=== PATIENT | female | born 1985 | race Caucasian/White ===

== ENCOUNTER 2020-10-20 16:56 | Emergency (ER) | payer OTHER, SELFPAY ==
[2020-10-20 17:07] VITALS: BP 144/81; PULSE 84; RESP 20; TEMP 36.6; O2SAT 100
--- NOTE | 2020-10-20 17:12 | ED.DENTAL ---
HPI - Dental/Oral General Chief complaint: Dental/Oral Stated complaint: tooth pain Time Seen by Provider: 10/20/20 17:22 Source: patient History of Present Illness HPI Narrative: NO FEVER. NO JAW SWELLING. NO NECK SWELLING. NO LIMITATION WITH SPEAKING OR SWALLOWING. HAS A HISTORY OF DENTAL CARIES. HAS NOT SEEN A DENTIST RECENTLY. Patient has pain to the left upper back tooth. Patient states she has an appointment to see the dentist November 17. Patient states she is taken Tylenol and ibuprofen for the pain but is not controlling the pain. ? Related Data Allergies Allergy/AdvReac Type Severity Reaction Status Date / Time Penicillins Allergy Unknown Hives Verified 10/20/20 17:15 Review of Systems Review of Systems: Narrative: CONSTITUTIONAL: Denies fever, chills, or sweats. EYES: Denies visual changes, redness, or discharge. ENT: Denies rhinorrhea, congestion, sore throat, or otalgia. NO FEVER. NO JAW SWELLING. NO NECK SWELLING. NO LIMITATION WITH SPEAKING OR SWALLOWING. HAS A HISTORY OF DENTAL CARIES. HAS NOT SEEN A DENTIST RECENTLY. CARDIOVASCULAR: Denies chest pain, palpitations, or edema. RESPIRATORY: Denies cough or dyspnea. GASTROINTESTINAL: Denies abdominal pain, nausea, vomiting, or diarrhea. GENITOURINARY: Denies dysuria or hematuria. SKIN: Denies rash or itching. MUSCULOSKELETAL: Denies back pain, joint pain, or myalgia. NEUROLOGIC: Denies headache, numbness, or weakness. PSYCHIATRIC: Denies anxiety or depression. [facility] Family History Family History (Updated 09/01/19 @ 14:27 by DOCTOR UNKNOWN) Father Hypertension Mother Hypertension Sibling Hypertension Asthma Grandparent Carcinoma of colon Family history of lung cancer Other Family history of arthritis Family history of malignant neoplasm Social History Social History Smoking status: Former smoker Smoking end date: 12/02/13 Alcohol intake: never Comments At time of signature, agree with nursing past medical, surgical, social and family history. There is no relevant family history pertinent to the presenting complaint Exam Narrative: Exam Narrative: GENERAL: Well-appearing, well-nourished, and in no acute distress. HEAD: Normocephalic, atraumatic. EYES: PERRLA and EOMI. ENT: Nares clear, no rhinorrhea or epistaxis. Mucous membranes moist. NO FARZAD APICAL SWELLING, TOOTH TENDER TO PALPATION. NO FACIAL SWELLING. NO TRISMUS. ABLE TO OPEN MOUTH FULLY. NO NECK SWELLING OR CODEY'S ANGINA. NO ABSCESS TO BE DRAINED. no drooling, trismus, facial asymmetry or significant neck swelling NECK: Supple. CHEST: Clear to auscultation. No respiratory distress. HEART: Regular rate and rhythm. No murmur heard. Normal peripheral pulses. ABDOMEN: Soft, nontender, nondistended, normal active bowel sounds. EXTREMITIES: Normal range of motion. No edema. SKIN: Warm, dry, no rash. NEURO: No focal deficits. Alert and oriented x3. Obion Coma Scale Eye Opening: Spontaneous 4 Zeeshan Coma Scale Motor: Obeys Commands 6 Obion Coma Scale Verbal: Oriented 5 Zeeshan Coma Scale Total 15 HENMT: Teeth image: 1. pain some swelling no drainable abscess Course Vital Signs Vital signs: Vital Signs Temperature 36.6 C 10/20/20 17:07 Pulse Rate 84 10/20/20 17:07 Respiratory Rate 20 10/20/20 17:07 Blood Pressure 144/81 H 10/20/20 17:07 Pulse Oximetry 100 10/20/20 17:07 Temperature 36.6 C 10/20/20 17:07 Pulse Rate 84 10/20/20 17:07 Respiratory Rate 20 10/20/20 17:07 Blood Pressure 144/81 H 10/20/20 17:07 Pulse Oximetry 100 10/20/20 17:07 Please EDER schedule a followup visit with your personal physician for further evaluation and treatment. Including recheck and discussion of your blood pressure. If your symptoms persist, change or worsen significantly before you can contact your personal physician then please, without delay, go to the emergency department for further evaluation MDM - Dental/Oral Differential Di
== END 2020-10-20 17:25 | disposition home or self-care (01) ==
PROVIDERS: Emergency Provider Nurse Practitioner Family; PCP Internal Medicine
DX: K08.89 Other specified disorders of teeth and supporting structures (principal); K04.7 Periapical abscess without sinus; K02.9 Dental caries, unspecified; Z87.891 Personal history of nicotine dependence
CPT/HCPCS: 99213; G0463

== ENCOUNTER 2021-05-01 15:58 | Emergency (ER) | payer OTHER, SELFPAY ==
[2021-05-01 16:05] VITALS: BP 145/93; PULSE 112; RESP 20; TEMP 36.4; O2SAT 93
[2021-05-01] MEDS: diphenhydrAMINE HCl CAP 25 MG CAPSULE 50 MG PO (16:12)
[2021-05-01] MEDS: methylPREDNISolone SOD SUCC 125 MG VIAL IM (16:12)
--- NOTE | 2021-05-01 16:14 | ED.ALLEREA ---
HPI - Allergic Reaction General Chief complaint: Allergic Reaction Stated complaint: hives all over and throat tight Time Seen by Provider: 05/01/21 16:14 Source: patient Mode of arrival: ambulatory Limitations: no limitations History of Present Illness HPI narrative: Danuta Fowler is a 35 yo female with a known nut allergy who comes to express care with an allergic reaction to unknown trigger. states she started to break out and had tightening in throat prior to eating bread and honey but this is only new thing she can identify. She has small hives on her torso and all extremities Related Data Home Medications Medication Instructions Recorded Confirmed lisinopril 10 mg PO DAILY 05/01/21 05/01/21 Allergies Allergy/AdvReac Type Severity Reaction Status Date / Time Penicillins Allergy Unknown Hives Verified 05/01/21 16:06 Review of Systems Review of Systems: Narrative: CONSTITUTIONAL: Denies fever, chills, sweats. EYES: Denies visual changes, redness, discharge. ENT: Denies rhinorrhea, congestion, sore throat, otalgia. CARDIOVASCULAR: Denies chest pain, palpitations, edema. RESPIRATORY: Denies dyspnea, wheezing, cough GASTROINTESTINAL: Denies abdominal pain, nausea, vomiting, diarrhea. GENITOURINARY: Denies dysuria, hematuria, abnormal discharge SKIN: Hives Legs and Torso, complaining of tightening of the throat NEUROLOGIC: Denies numbness, or focal weakness. PSYCHIATRIC: Denies anxiety or depression. PMFSH Past Medical History Medical History Nut allergy Family History Family History Father Hypertension Mother Hypertension Sibling Hypertension Asthma Grandparent Carcinoma of colon Family history of lung cancer Other Family history of arthritis Family history of malignant neoplasm Social History Social History Smoking status: Former smoker Smoking end date: 12/02/13 Alcohol intake: never Comments At time of signature, I agree with nursing past medical, surgical, social and family history. There is no relevant family history pertinent to the presenting complaint. Exam Narrative: Exam Narrative: GENERAL: This is a well-nourished, well-developed patient, in moderate distress. HEAD: normocephalic, atraumatic. EYES: Sclera clear/white. Vision is grossly intact. EARS: External ears normal, . Hearing grossly intact. NOSE: External nose normal without nasal discharge, nares without redness, no rhinorrhea. THROAT: Mucous membranes moist, posterior pharynx mild erythema but patent NECK: Neck supple, non-tender CARDIOVASCULAR: Tachycardic rate and rhythm without murmurs, gallops, or rubs. RESPIRATORY: Clear to auscultation. Breath sounds equal bilaterally. No wheezes, rales, or rhonchi. GASTROINTESTINAL: Abdomen soft, non-tender, SKIN: warm, intact with bailee hives on extremities and torso NEURO: awake, alert, and oriented to person, place and time. There were no obvious focal neurologic abnormalities. Steady gait EXTREMITIES: Normal range of motion. BACK: Nontender without deformity Course Course Emergency Course: Initial assessment: Airway patent, heart rate tachycardic blood pressure elevated, hives on extremities and torso, Given Solu-Medrol, 50 mg of Benadryl, Pepcid 40 mg Reassessment: Clear posterior pharynx, heart rate blood pressure, rash has not increased Reassessment 3 Clear posterior pharynx, heart rate improved (90), even breathing no wheezing rash is improved substantially Directions to follow-up with primary care physician, prednisone Pepcid, Benadryl given for the next few days along with a prescription for an EpiPen Vital Signs Vital signs: Vital Signs Temperature 97.6 F 05/01/21 16:05 Pulse Rate 112 H 05/01/21 16:05 Respiratory Rate 20 05/01/21 16:05 Blood Pressure 145/93 H 05/01/21 16:
[2021-05-01] MEDS: FAMOTIDINE 20 MG TABLET 40 MG PO (16:23)
[2021-05-01 16:50] VITALS: BP 136/102; PULSE 119; O2SAT 98
== END 2021-05-01 17:40 | disposition home or self-care (01) ==
PROVIDERS: Emergency Provider Nurse Practitioner
DX: L50.9 Urticaria, unspecified (principal); R09.89 Other specified symptoms and signs involving the circulatory and respiratory systems; T78.40XA Allergy, unspecified, initial encounter; Z87.891 Personal history of nicotine dependence; I10 Essential (primary) hypertension
CPT/HCPCS: 96372; 99213; A9270; G0463; J2930

== ENCOUNTER 2021-11-14 15:22 | Emergency (ER) | payer OTHER, SELFPAY ==
[2021-11-14 15:30] VITALS: BP 133/75; PULSE 97; RESP 14; TEMP 36.8; O2SAT 100
--- NOTE | 2021-11-14 15:51 | ED.DENTAL ---
HPI - Dental/Oral General Chief complaint: Dental/Oral Stated complaint: Toothach Time Seen by Provider: 11/14/21 15:26 Source: patient Mode of arrival: ambulatory Limitations: no limitations History of Present Illness HPI Narrative: 36-year-old female presents to [facility] for complaints of left upper tooth pain for the past week. Patient reports that she does have a history of dental issues. Patient reports that she had a left upper tooth break off 1 week ago. Patient states that she is scheduled to see her dentist in December. Patient denies fever, bodies, chills, nausea, vomiting or diarrhea. MD Complaint: tooth pain Location: Tooth # (14,15) Onset (ago): week(s) (1) Relieving factors: NSAIDs Treatment prior to arrival: oral analgesic Related Data Home Medications Medication Instructions Recorded Confirmed lisinopril 5 mg PO DAILY 05/01/21 11/14/21 Allergies Allergy/AdvReac Type Severity Reaction Status Date / Time Penicillins Allergy Unknown Hives Verified 11/14/21 15:36 Review of Systems Constitutional: Constitutional: Denies chills, Denies fatigue, Denies fever(s) and Denies weakness ENT: Comments: dental pain Cardiovascular: Cardiovascular: Denies chest pain, Denies rapid heart rate and Denies radiating jaw, neck or arm pain Respiratory: Respiratory: Denies cough Integumentary/Breasts: Skin/Breast: Denies rash PMFSH Past Medical History Medical History Nut allergy Family History Family History Father Hypertension Mother Hypertension Sibling Hypertension Asthma Grandparent Carcinoma of colon Family history of lung cancer Other Family history of arthritis Family history of malignant neoplasm Social History Social History (Updated 11/14/21 @ 15:53 by Isabelle Monson APRN) Smoking status: Former smoker Tobacco type: e-cigarettes/vaping Smoking end date: 12/02/13 Alcohol intake: never Comments At time of signature, I agree with nursing past medical, surgical, social and family history. There is no relevant family history pertinent to the presenting complaint. Exam Const: General: healthy appearing and no acute distress Orientation/consciousness: patient oriented x3 HENMT: Other: Broken tooth noted to tooth 14 and 15. There is mild surrounding erythema and swelling noted. There is no dental abscess noted. No jaw swelling, bruising today*open wound noted Eyes: Pupils: Equal, round and reactive pupils present Resp: Effort & Inspection: normal respiratory effort, not labored and not tachypneic Auscultation: clear to auscultation bilaterally Cardio: Rate: regular rate Rhythm: regular rhythm Skin: General skin exam: normal color Rashes: no rashes Neuro: General: patient oriented x3, moves all extremities and no meningeal signs Psych: Appearance: grossly normal Affect: normal affect Attitude: cooperative Thought content: Yes Normal thought content present Course Vital Signs Vital signs: Vital Signs Temperature 36.8 C 11/14/21 15:30 Pulse Rate 97 11/14/21 15:30 Respiratory Rate 14 11/14/21 15:30 Blood Pressure 133/75 11/14/21 15:30 Pulse Oximetry 100 11/14/21 15:30 Temperature 36.8 C 11/14/21 15:30 Pulse Rate 97 11/14/21 15:30 Respiratory Rate 14 11/14/21 15:30 Blood Pressure 133/75 11/14/21 15:30 Pulse Oximetry 100 11/14/21 15:30 MDM - Dental/Oral MDM Narrative Medical decision making narrative: Patient agrees to keep scheduled dentist appointment. Patient agrees to continue to alternate Motrin Tylenol as needed. Patient agrees to take antibiotic as prescribed. Patient agrees to proceed to emergency room if symptoms worsen Differential Diagnosis Differential diagnosis: Likely dental abscess, fracture of tooth and aphthous ulcer Critical Care Time Critical Care Time Critical Care Time: No Dis
== END 2021-11-14 15:59 | disposition home or self-care (01) ==
PROVIDERS: Emergency Provider Nurse Practitioner Family
DX: K08.89 Other specified disorders of teeth and supporting structures (principal)
CPT/HCPCS: 99213; G0463

== ENCOUNTER 2022-11-08 13:32 | Emergency (ER) | payer OTHER, SELFPAY ==
[2022-11-08 13:38] VITALS: BP 151/82; PULSE 84; RESP 20; TEMP 36.5; O2SAT 100
--- NOTE | 2022-11-08 13:39 | ED.DENTAL ---
HPI - Dental/Oral General Chief complaint: Dental/Oral Stated complaint: Toothache Time Seen by Provider: 11/08/22 13:40 Source: patient and RN notes reviewed History of Present Illness HPI Narrative: patient is a 37-year-old female who presents to the Urgent Care with complaints of right upper dental pain after cracking and 2 2 days ago. Patient states she called her dentist and they are unable to see her until December. Patient states that she had some mild facial swelling last night. Patient has been doing salt water gargles and using peroxide. Denies any fevers, nausea or vomiting. No other acute complaints. No acute distress noted. Patient aware of the plan of care. Some parts of this dictation were generated by voice recognition software and may contain typographical and/or grammatical inaccuracies. Related Data Allergies Allergy/AdvReac Type Severity Reaction Status Date / Time Penicillins Allergy Unknown Hives Verified 11/08/22 13:41 Review of Systems Review of Systems: CONSTITUTIONAL: Denies fever, chills, or sweats. EYES: Denies visual changes, redness, or discharge. ENT: Denies rhinorrhea, congestion, sore throat, or otalgia. Reports of right upper dental pain CARDIOVASCULAR: Denies chest pain, palpitations, or edema. RESPIRATORY: Denies cough or dyspnea. GASTROINTESTINAL: Denies abdominal pain, nausea, vomiting, or diarrhea. GENITOURINARY: Denies dysuria or hematuria. SKIN: Denies rash or itching. MUSCULOSKELETAL: Denies back pain, joint pain, or myalgia. NEUROLOGIC: Denies headache, numbness, or weakness. All other systems reviewed are negative, except as documented in HPI. [facility] Past Medical History Medical History Nut allergy Family History Family History Father Hypertension Mother Hypertension Sibling Hypertension Asthma Grandparent Carcinoma of colon Family history of lung cancer Other Family history of arthritis Family history of malignant neoplasm Social History Social History (Updated 11/14/21 @ 15:53 by Isabelle Monson APRN) Smoking status: Former smoker Tobacco type: e-cigarettes/vaping Smoking end date: 12/02/13 Alcohol intake: never Comments At the time of my signature, I reviewed and agree with the nursing past medical, surgical, social, and family history. There is no relevant family history pertinent to the patient complaint. Exam Narrative: GENERAL: This is a well-nourished, well-developed patient, in no apparent distress. HEAD: normocephalic, atraumatic. EYES: PERRL. Sclera clear/white. Vision is grossly intact. EARS: External ears normal NOSE: External nose normal with no obvious nasal discharge, nares without redness, no rhinorrhea. THROAT: Mucous membranes moist, posterior pharynx clear. NECK: Neck supple, non-tender without lymphadenopathy DENTAL: large carious lesion to avulsed 1st right upper molar with mild surrounding erythema. CARDIOVASCULAR: Regular rate and rhythm without murmurs, gallops, or rubs. RESPIRATORY: Clear to auscultation. Breath sounds equal bilaterally. No wheezes, rales, or rhonchi. SKIN: warm, intact with no suspicious lesions or rash, good texture and turgor. NEURO: awake, alert, and oriented to person, place and time. There were no obvious focal neurologic abnormalities. EXTREMITIES: No clubbing, cyanosis, or edema Course Course Level of Care: Express Care Visit Vital Signs Vital signs: Vital Signs Temperature 97.7 F 11/08/22 13:38 Pulse Rate 84 11/08/22 13:38 Respiratory Rate 20 11/08/22 13:38 Blood Pressure 151/82 H 11/08/22 13:38 Pulse Oximetry 100 11/08/22 13:38 Oxygen Delivery Room Air 11/08/22 13:38 Temperature 97.7 F 11/08/22 13:38 Pulse Rate 84 11/08/22 13:38 Respiratory Rate 20 11/08/22 13:38 Blood Pressure 151/82 H 11/08/22 13:38 Pulse Oximetry 100 11/08/22 13:3
== END 2022-11-08 14:16 | disposition home or self-care (01) ==
PROVIDERS: Emergency Provider Nurse Practitioner Family
DX: K02.9 Dental caries, unspecified (principal); S02.5XXA Fracture of tooth (traumatic), initial encounter for closed fracture; X58.XXXA Exposure to other specified factors, initial encounter
CPT/HCPCS: 99213; G0463

== ENCOUNTER 2024-02-05 11:41 | Emergency (ER) | payer OTHER, SELFPAY ==
[2024-02-05 11:47] VITALS: BP 144/100; PULSE 94; RESP 16; TEMP 36.9; O2SAT 100
[2024-02-05 11:52] VITALS: BP 153/97
[2024-02-05 11:55] VITALS: BP 153/97; PULSE 94; RESP 16; TEMP 36.9; O2SAT 100
--- NOTE | 2024-02-05 12:06 | ED.HA ---
HPI - Headache General Chief Complaint: Headache Stated Complaint: migraine Time Seen by Provider: 02/05/24 12:06 Source: patient, RN notes reviewed and old records reviewed Mode of arrival: ambulatory Limitations: no limitations History of Present Illness HPI Narrative: 38 year old female who presents to [facility] care accompanied by family member and son with complaints of migriane headache noted to the back of her head which started around 0600 today. Patient reports that she has taken Tylenol and Ibuprofen and also her Imetrex without improvement to her head pain. Patient reports that she has nausea with no emesis, has associated photophobia and sound sensitivity. Patient reports history of Migraines and are worse just before her menses.Patient reports 15 year history of migraines. MD elicited complaint: migraine Pertinent past history: migraines and hypertension Onset (ago): hour(s) (today at 0600) Location: occipital Pain scale (0-10): 10 Treatments prior to arrival: acetaminophen, ibuprofen and other (Imitrex) Related Data Home Medications Medication Instructions Recorded Confirmed fluticasone propionate 50 intranasal 02/05/24 mcg/actuation nasal spray,suspension omeprazole 40 mg capsule,delayed mg 02/05/24 release sumatriptan succinate 50 mg tablet mg PO 02/05/24 Allergies Allergy/AdvReac Type Severity Reaction Status Date / Time Penicillins Allergy Unknown Hives Verified 02/05/24 11:48 tramadol Allergy Hives Verified 02/05/24 12:15 Review of Systems Review of Systems: CONSTITUTIONAL: Denies fever, chills, or sweats. EYES: Denies visual changes, redness, or discharge.is photophobic and has sound sensitivity ENT: Denies rhinorrhea, congestion, sore throat, or otalgia. CARDIOVASCULAR: Denies chest pain, palpitations, or edema. RESPIRATORY: Denies cough or dyspnea. GASTROINTESTINAL: Denies abdominal pain positive for nausea, no vomiting, or diarrhea. GENITOURINARY: Denies dysuria or hematuria. SKIN: Denies rash or itching. MUSCULOSKELETAL: Denies back pain, joint pain, or myalgia. NEUROLOGIC: Reports posterior headache,no numbness, or weakness. PSYCHIATRIC: Reports history of anxiety or depression. All systems reviewed & are unremarkable except as noted in HPI and below PMFSH Past Medical History Medical History (Updated 02/06/24 @ 10:41 by Mounika Snyder NP) Ankle fracture, right Anxiety Hx of migraines Hypertension Nut allergy Surgical History Surgical History (Updated 02/06/24 @ 10:36 by Mounika Snyder NP) H/O arthroscopic knee surgery Family History Family History Father Hypertension Mother Hypertension Sibling Hypertension Asthma Grandparent Carcinoma of colon Family history of lung cancer Other Family history of arthritis Family history of malignant neoplasm Social History Social History (Updated 11/14/21 @ 15:53 by Isabelle Monson APRN) Smoking status: Former smoker Tobacco type: e-cigarettes/vaping Smoking end date: 12/02/13 Alcohol intake: never Comments At time of signature, agree with nursing past medical, surgical, social and family history. There is no relevant family history pertinent to the presenting complaint Exam Narrative: GENERAL: Well-appearing, well-nourished, and in some acute distress. HEAD: Normocephalic, atraumatic. EYES: PERRLA and EOMI.sensitivity to light and sound ENT: Nares clear, no rhinorrhea or epistaxis. Mucous membranes moist.TM's normal throat pink with no swelling NECK: Supple. no lymphadenopathy CHEST: Clear to auscultation. No respiratory distress. SAO2 100% on room air HEART: Regular rate and rhythm. No murmur heard. Normal peripheral pulses. ABDOMEN: Soft, nontender, nondistended, normal active bowel sounds. stated nausea EXTREMITIES: Normal range of motion. No edema. SKIN: Warm, dry, no rash. NEURO: No focal deficits. Alert and oriented x3. o
[2024-02-05] MEDS: ONDANSETRON HCL ODT 4 MG TABLET SUBLINGUAL (12:20)
[2024-02-05] MEDS: KETOROLAC (*BKC) 60 MG/2 ML VIAL IM (12:20)
== END 2024-02-05 12:46 | disposition home or self-care (01) ==
PROVIDERS: Emergency Provider Registered Nurse
DX: G43.909 Migraine, unspecified, not intractable, without status migrainosus (principal); I10 Essential (primary) hypertension
CPT/HCPCS: 96372; 99213; A9270; G0463; J1885

== ENCOUNTER 2024-05-14 11:44 | Emergency (ER) | payer OTHER, SELFPAY ==
[2024-05-14 11:51] VITALS: BP 129/74; PULSE 82; RESP 18; TEMP 37.2; O2SAT 100
--- NOTE | 2024-05-14 13:06 | ED.NAVMDI ---
HPI - Nausea/Vomiting/Diarrhea General Chief complaint: Nausea/Vomiting/Diarrhea Stated complaint: Vomiting/Diarrhea/Fatigue Time Seen by Provider: 05/14/24 12:30 Source: patient, RN notes reviewed and old records reviewed Mode of arrival: ambulatory Limitations: no limitations History of Present Illness HPI Narrative: 38 year old female who presents to [facility] care with complaints of nausea,vomiting and diarrhea and headache with feelings of exhaustion for the past 4 days. Patient reports that she had one diarrhea stool this morning no vomiting today. Patient reports that she has not eaten today did eat yesterday, has been taking in fluids and voiding without difficulty. Patient reports no ill contacts or any fevers, chills or body aches. MD elicited complaint: nausea, vomiting, diarrhea and other (headache and exhaustion) Onset (ago): day(s) (4) Description of diarrhea: watery Associated nausea: Yes Associated abdominal pain: No Treatment prior to arrival: NSAIDs and other (Tylenol) Related Data Home Medications Medication Instructions Recorded Confirmed omeprazole 40 mg capsule,delayed 40 mg PO DAILY 02/05/24 05/14/24 release amitriptyline 50 mg tablet 50 mg PO DAILY PRN Migraine 05/14/24 05/14/24 Headache ketoconazole 2 % shampoo 1 applic topical DAILY 05/14/24 05/14/24 lisinopril 10 mg tablet 10 mg PO DAILY 05/14/24 05/14/24 loratadine 10 mg tablet 10 mg PO DAILY 05/14/24 05/14/24 Allergies Allergy/AdvReac Type Severity Reaction Status Date / Time Penicillins Allergy Unknown Hives Verified 05/14/24 12:39 tramadol Allergy Hives Verified 05/14/24 12:39 Review of Systems Review of Systems: CONSTITUTIONAL: Denies fever, chills, or sweats.low energy ENT: Denies rhinorrhea, congestion, sore throat, or otalgia. CARDIOVASCULAR: Denies chest pain, palpitations, or edema. RESPIRATORY: Denies cough or dyspnea. GASTROINTESTINAL: Reports no abdominal pain,positive for nausea, no vomiting today, positive for diarrhea. GENITOURINARY: Denies dysuria or hematuria. SKIN: Denies rash or itching. MUSCULOSKELETAL: Denies back pain, joint pain, or myalgia. NEUROLOGIC: Reports headache, no numbness, or weakness. All systems reviewed & are unremarkable except as noted in HPI and below PMFSH Past Medical History Medical History Ankle fracture, right Anxiety Hx of migraines Hypertension Nut allergy Surgical History Surgical History H/O arthroscopic knee surgery Family History Family History Father Hypertension Mother Hypertension Sibling Hypertension Asthma Grandparent Carcinoma of colon Family history of lung cancer Other Family history of arthritis Family history of malignant neoplasm Social History Social History (Updated 05/16/24 @ 08:04 by Mounika Snyder NP) Smoking status: Current every day smoker Tobacco type: e-cigarettes/vaping Smoking end date: 12/02/13 Additional smoking assessment comments: now vapes Alcohol intake: never Substance use type: does not use Living arrangements: with family Gender identity (if verbalized by the patient): Female Comments At time of signature, agree with nursing past medical, surgical, social and family history. There is no relevant family history pertinent to the presenting complaint Exam Narrative: GENERAL: Well-appearing, well-nourished, and in no acute distress. HEAD: Normocephalic, atraumatic. EYES: PERRLA, conjunctivae clear, and EOMI. ENT: Nares clear. Mucous membranes moist. Oropharynx without edema, erythema, or lesions. Tonsils not enlarged and without exudate. NECK: Supple. No lymphadenopathy CHEST: Speaks in full sentences. No respiratory distress.SAO2 100% on room air HEART: Regular rate and rhythm. ABDOMEN: Soft, flat, nondistended. No guard
== END 2024-05-14 13:16 | disposition home or self-care (01) ==
PROVIDERS: Emergency Provider Registered Nurse
DX: K52.9 Noninfective gastroenteritis and colitis, unspecified (principal); F17.290 Nicotine dependence, other tobacco product, uncomplicated; I10 Essential (primary) hypertension
CPT/HCPCS: 99213; G0463

== ENCOUNTER 2025-08-31 12:20 | Emergency (ER) | payer SELFPAY ==
--- NOTE | ~2025-08-31 | XR_ITS ---
Examination: XR knee RT 3V Clinical History: pain twisting injury. Comparison: None Technique: 3 views right knee Findings/impression: 1. No fracture, dislocation, or effusion. 2. Moderate patellofemoral compartment joint space narrowing with mild marginal osteophytes. 3. Mild lateral compartment marginal osteophytes. Reviewed, dictated and finalized at location R.
--- OUTSIDE RECORDS SUMMARY | 2025-08-31 12:22 | XMS_ITS | Clinical Summary ---
Author Organization [facility] Address [address] [facility] [address] [place] [address] Phone Care Team Providers Care Lettuce Trimmer Name Role Phone Provider, None Primary Care Provider Unavailabl e Allergies Active Allergy Reactions Criticality Noted Date Comments Ketorolac Other (see Comments) 02/20/2025 uncontrollable shaking Penicillins Hives 01/17/2017 Tramadol Hives 02/07/2018 Medications albuterol (PROVENTIL HFA, VENTOLIN HFA) 108 (90 Base) MCG/ACT Aerosol SolutionIndicat ions:Bronchitis take 2 Puffs by inhalation every 4 hours as needed for Wheezing. 8.5 g 8 Active SUMAtriptan (IMITREX) 50 MG Tablet Take 1 Tab by mouth once as needed for Migraine for up to 1 dose. Use as directed. May repeat dose in 2 hours if headache recurs. 9 Tab 3 8 Active Active Problems Problem Noted Date Diagnosed Date Chondromalacia of knee, left 05/21/2018 Chronic pain of left knee 05/21/2018 Fatigue 11/20/2017 Migraine without aura and wi thout status migrainosus, not intractable 04/12/2017 Immunizations Immunization Administration Dates Next Due PUR TDAP 7+ YRS IM 01/17/2017 Family History Medical History Relation Name Comments Hypertension Father Cancer Maternal Grandfather Hypertension Mother Cancer Paternal Grandfather Cancer Paternal Grandmother Relation Name Status Comments Father Alive Maternal Grandfather Mother Alive Paternal Grandfather Paternal Grandmother Social History Tobacco Use Types Packs/Day Years Used Date Smoking Tobacco: Former E-Vapor with Nicotine Quit: 01/17/2014 Smokeless Tobacco: Current Tobacco Cessation:Ready to Q uit: No; Counseling Given: Yes Comments:4mg Alcohol Use Standard Drinks/Week Comments No 0 (1 standard drink = 0.6 oz pur e alcohol) Sexually Active Control Partners Comments Yes I.U.D. Comments No Sex and Gender Information Value Date Recorded Sex Assigned at Not on file Legal Sex Female 9:17 PM CDT Gender Identity Not on file Sexual Orientation Not on file Last Filed Vital Signs Vital Sign Reading Time Taken Comments Blood Pressure 143/89 02/20/2025 10:30 PM CDT Pulse 115 02/20/2025 10:30 PM CDT Temperature 36.8 C (98.2 F) 02/20/2025 7:53 PM CDT Respiratory Rate 20 02/20/2025 7:53 PM CDT Oxygen Saturation 97% 02/20/2025 10:30 PM CDT Inhaled Oxygen Concentration - - Weight 78.5 kg (173 lb) 02/20/2025 7:53 PM CDT Height 160 cm (5' 3) 02/20/2025 7:53 PM CDT Body Mass Index 30.65 02/20/2025 7:53 PM CDT Plan of Treatment Health Maintenance Due Date Last Done Comments Hepatitis C Virus (HCV) Screening 1985 Hepatitis B Immunization (1 of 3 - 19+ 3-dose series) 2004 Human Papillomavirus (HPV) Immunization (1 - 3-dose SCDM series) 2012 HPV/Cotest 2015 Cervical Cancer Screening (CCS) 01/13/2019 Pap Smear 01/13/2019 01/13/2016 Influenza Immunization (#1) 2025 SARS-COV-2 Immunization ( season) 2025 Td Immunization Every 10 Yea rs (Adults With 1 Tdap) 01/17/2027 01/17/2017 Respiratory Syncytial Virus (RSV) Immunization (Adult) (1 - 1-dose 75+ series) 2060 Meningococcal Immunization (ACWY) Aged Out No longer eligible based on patient's age to complete this topic Pneumococcal Immunization Combined Aged Out No longer eligible based on patient's age to complete this topic Rotavirus Immunization Aged Out No lo nger eligible based on patient's age to complete this topic Procedures Procedure Name Priority Date/Time Associated Diagnosis Comments PATHOLOGY CYTOLOGY FRUIT WASHER Routine 01/13/2016 from Last 3 Months or Most Recently Relevant to Health Maintenance Results * PATHOLOGY CYTOLOGY FRUIT WASHER (01/13/2016) Specimen of unknown material (specimen) Latesha Concepcion MD PATHOLOGY/CYTOLOGY ORDERABLES Final Result from Last 3 Months or Most Recently Relevant to Health Maintenance Insurance [employer] Care Teams Lettuce Trimmer Relationship Specialty Start Date End Date Provider, Marsha GARDINER PCP - General 02/20/25
--- OUTSIDE RECORDS SUMMARY | 2025-08-31 12:22 | XMS_ITS | Clinical Summary ---
Author Organization [facility] Address [address] [place] [address] Care Team Providers Care Microbiological Analyst Name Role Phone Andry Waters MD Primary Care Provider [phone] Allergies Active Allergy Reactions Criticality Noted Date Comments Nuts Anaphylaxis,Chest tightness,Shortness of breath,Swollen tongue High 10/10/2021 Penicillins Hives Medium 01/17/2017 Reaction: hives, Tramadol Itching,Hives Medium 01/02/2018 Medications fluticasone propionate (FLONASE) 50 mcg/actuation nasal sprayIndications :Eustachian tube dysfunction, bilateral Administer 2 sprays into each nostril daily 16 mL 5 3 Active triamcinolone (KENALOG) 0.1 % cream Apply topically 2 (two) times a day as needed for rash for up to 14 days AVOID FACE AND GROIN 28 g 3 Active SUMAtriptan (IMITREX) 50 mg tabletIndication s:Menstrual migraine without status migrainosus, not intractable TAKE 1 TABLET BY MOUTH ONCE NEEDED FOR MIGRAINE, MAY REPEAT IN 2 HOURS IF NO RELIEF, DO NOT EXCEED 2 DOSES IN 24 HOURS 9 tablet 1 3 Active ketoconazole (NIZORAL) 2 % shampoo Apply topically 2 (two) times a week Apply to damp skin, lather, leave on 5 minutes, and rinse 120 mL 1 3 Active clobetasoL (TEMOVATE) 0.05 % cream Apply topically 2 (two) times a day 60 g 2 3 Active lisinopriL (PRINIVIL,ZESTRI L) 10 mg tabletIndication s:Hypertension, essential Take 1 tablet (10 mg total) by mouth daily 90 tablet 4 Active loratadine (CLARITIN) 10 mg tablet Take 1 tablet (10 mg total) by mouth daily as needed for allergies 90 tablet 4 Active EPINEPHrine 0.3 mg/0.3 mL auto-injection syringeIndicatio ns:Anaphylaxis Inject 0.3 mL (0.3 mg total) into the muscle as instructed as needed for anaphylaxis 2 each 4 Active omeprazole (PriLOSEC) 40 mg capsule Take 1 capsule (40 mg total) by mouth daily 90 capsule 4 Active amitriptyline (ELAVIL) 50 mg tabletIndication s:Menstrual migraine without status migrainosus, not intractable TAKE 1 TABLET(50 MG) BY MOUTH EVERY NIGHT 90 tablet 1 4 Active Active Problems Problem Noted Date Diagnosed Date Annual physical exam 10/30/2023 Class 1 obesity due to exces s calories without serious comorbidity with body mass index (BMI) of 33.0 to 33.9 in adult 12/19/2022 Assessment & Plan (02/26/2024 2:51 PM CDT): Wt Readings from Last 3 Encounters: 02/26/24 79 kg (174 lb 1.6 oz) 10/30/23 79.5 kg (175 lb 4.8 oz) 05/28/23 82.1 kg (181 lb) BMI Readings from Last 3 Encounters: 02/26/24 31.84 kg/m 10/30/23 32.05 kg/m 05/28/23 33.11 kg/m Not at goal of bmi <30 Continue diet and exercise BMI Follow-up includes: nutrition counseling and exercise counseling. Assessment & Plan (10/30/2023 3:48 PM MUSHROOM GROWER): Wt Readings from Last 3 Encounters: 10/30/23 79.5 kg (175 lb 4.8 oz) 05/28/23 82.1 kg (181 lb) 02/27/23 83.3 kg (183 lb 11.2 oz) BMI Readings from Last 3 Encounters: 10/30/23 32.05 kg/m 05/28/23 33.11 kg/m 02/27/23 33.60 kg/m Not at goal of bmi <30 Continue diet and exercise BMI Follow-up includes: nutrition counseling and exercise counseling. Assessment & Plan (05/28/2023 11:56 AM CDT): Wt Readings from Last 3 Encounters: 05/28/23 82.1 kg (181 lb) 02/27/23 83.3 kg (183 lb 11.2 oz) 12/19/22 83 kg (183 lb) BMI Readings from Last 3 Encounters: 05/28/23 33.11 kg/m 02/27/23 33.60 kg/m 12/19/22 33.46 kg/m Not at goal of bmi <30 Continue diet and exercise BMI Follow-up includes: nutrition counseling and exercise counseling. Assessment & Plan (02/27/2023 9:59 AM CDT): Wt Readings from Last 3 Encounters: 02/27/23 83.3 kg (183 lb 11.2 oz) 12/19/22 83 kg (183 lb) 10/11/21 68 kg (150 lb) BMI Readings from Last 3 Encounters: 02/27/23 33.60 kg/m 12/19/22 33.46 kg/m 10/11/21 27.44 kg/m Not at goal of bmi <30 Continue diet and exercise BMI Follow-up includes: nutrition counseling and exercise counseling. Assessment & Plan (12/19/2022 11:46 AM MUSHROOM GROWER): Wt Readings from Last 3 Encounters: 12/19/22 83 kg (183 lb) 10/11/21 68 kg (150 lb) 10/10/21 72.8 kg (160 lb 9.6 oz) BMI Readings from Last 3 Encounters: 12/19/22 33.46 kg/m 10/11/21 27.44 kg/m 10/10/21 27.57 kg/m Not at goal of bmi <30 Continue diet and exercise BMI Follow-up includes: nutrition counseling and exercise counseling. Primary insomnia 10/10/2021 Assessment & Plan (02/27/2023 9:59 AM CDT): - at goal - difficulty with sleep initiation and maintenance - c/w Amitriptyline 25 mg nightly for migraine prevention but may also help with sleep Assessment & Plan (12/19/2022 11:44 AM MUSHROOM GROWER): - at goal - difficulty with sleep initiation and maintenance - c/w Amitriptyline 25 mg nightly for migraine prevention but may also help with sleep Assessment & Plan (10/10/2021 12:56 PM MUSHROOM GROWER): - chronic, not at goal - difficulty with sleep initiation and maintenance - start Amitriptyline 25 mg nightly for migraine prevention but may also help with sleep - follow up in 2 months Allergic reaction 05/08/2021 Assessment & Plan (05/08/2021 8:16 AM CDT): - recent episode of allergic reaction for which she went to urgent care - she was administered Epinephrine and had felt diffuse hives, hands swelling and finger numbness and also felt her throat was closing - does nto appear she had a true anaphalaxis - she would like to be tested for allergic causes as there was no specific known cause for it - referral placed to Allergy/Immunology Hypertension, essential 03/28/2021 Assessment & Plan (02/26/2024 2:55 PM CDT): BP Readings from Last 3 Encounters: 02/26/24 90/60 10/30/23 122/84 05/28/23 118/82 Vitals BP 90/60 (BP Location: Left arm, Patient Position: Sitting) Pulse 69 Resp 16 Ht 157.5 cm (5' 2.01) Wt 79 kg (174 lb 1.6 oz) SpO2 98% BMI 31.84 kg/m Lab Results Component Value Date POTASSIUM 4.7 12/27/2022 At goal at this time Continue lisionpril 10 mg every day Assessment & Plan (10/30/2023 3:48 PM MUSHROOM GROWER): BP Readings from Last 3 Encounters: 10/30/23 122/84 05/28/23 118/82 02/27/23 116/60 Vitals BP 122/84 (BP Location: Right arm, Patient Position: Sitting) Pulse 71 Resp 16 Ht 157.5 cm (5' 2.01) Wt 79.5 kg (175 lb 4.8 oz) SpO2 97% BMI 32.05 kg/m Lab Results Component Value Date POTASSIUM 4.7 12/27/2022 At goal at this time Continue lisionpril 10 mg every day Assessment & Plan (05/28/2023 11:42 AM CDT): BP Readings from Last 3 Encounters: 05/28/23 118/82 02/27/23 116/60 12/19/22 125/86 Vitals BP 118/82 (BP Location: Left arm, Patient Position: Sitting) Pulse 97 Ht 157.5 cm (5' 2) Wt 82.1 kg (181 lb) LMP 04/01/2023 SpO2 97% BMI 33.11 kg/m Lab Results Component Value Date POTASSIUM 4.7 12/27/2022 At goal - continue lisinopril 10 mg every day Assessment & Plan (02/27/2023 9:59 AM CDT): BP Readings from Last 3 Encounters: 12/19/22 125/86 10/11/21 133/90 10/10/21 106/78 Vitals Ht 157.5 cm (5' 2) Wt 83.3 kg (183 lb 11.2 oz) BMI 33.60 kg/m Lab Results Component Value Date POTASSIUM 4.7 12/27/2022 At goal - continue lisinopril 10 mg every day Assessment & Plan (12/19/2022 11:39 AM MUSHROOM GROWER): BP Readings from Last 3 Encounters: 12/19/22 125/86 10/11/21 133/90 10/10/21 106/78 Vitals BP 125/86 (BP Location: Right arm, Patient Position: Sitting) Pulse 80 Resp 16 Ht 157.5 cm (5' 2.01) Wt 83 kg (183 lb) BMI 33.46 kg/m Lab Results Component Value Date POTASSIUM 4.3 03/28/2021 At goal - will continue lisinopril 10 mg every day Assessment & Plan (10/10/2021 11:18 AM MUSHROOM GROWER): - chronci, well controlled - diagnosed around - currently on Lisinopril 10 mg - well controlled with current medications - continue with current medication - follow a low salt diet - monitor BP regularly at home Assessment & Plan (05/08/2021 8:14 AM CDT): - diagnosed around - has been on Lisinopril 10 mg - well controlled with current medications - continue with current medication - follow a low salt diet - monitor BP regularly at home Assessment & Plan (03/28/2021 8:48 AM CDT): - diagnosed around - has been on Lisinopril 10 mg - well controlled - continue with current medication - check labs Menstrual migraine without s tatus migrainosus, not intractable 03/28/2021 Assessment & Plan (02/26/2024 2:49 PM CDT): Nota t goal at this time More frequent headaches Imitrex doesn't help when gets one Will increase elavil to 50 mg every day Referral to neurology Assessment & Plan (02/27/2023 10:06 AM CDT): Stable - refill on elavil and imitrex Assessment & Plan (12/19/2022 11:44 AM MUSHROOM GROWER): Stable - refill on elavil and imitrex Assessment & Plan (10/10/2021 11:20 AM MUSHROOM GROWER): - chronic, not at goal - controlled/managed with medications - history of migraine headaches without aura occurring mostly around menstrual cycles - associated symptoms nausea, vomiting, light sensitivity and noise sensitivity as well, both side headaches usually - using Imitrex which has been working + Zofran for nausea - still having frequent headaches - start Amitriptyline 25 mg nightly, follow up in 2 months Assessment & Plan (05/08/2021 8:14 AM CDT): - stable, controlled/managed with medications - history of migraine headaches without aura occurring mostly around menstrual cycles - associated symptoms nausea, vomiting, light sensitivity and noise sensitivity as well, both side headaches usually - using Imitrex which has been working - will prescribe Zofran to use for nausea and at start of her migraine headaches Assessment & Plan (03/28/2021 8:50 AM CDT): - history of migraine headaches without aura - occurs mostly around her menstrual cycles - has been on Imitrex which has worked before - associated symptoms nausea, vomiting, light sensitivity and noise sensitivity as well, both side headaches usually - will provide refill for Imitrex Former smoker 03/28/2021 Overview (03/28/2021): - Smoked for 8 years, 1.5 pk/day for total of 12 pk years. She quit smoking in 2013. Assessment & Plan (03/28/2021 9:49 AM CDT): - Smoked for 8 years, 1.5 pk/day for total of 12 pk years. She quit smoking in 2013. Resolved Problems Problem Noted Date Diagnosed Date Resolved Date Pain, dental 07/31/2023 02/26/2024 Assessment & Plan (07/31/2023 11:28 AM CDT): Rx doxycyline to patient pharmacy due to allergy of PCN and intolerance of clindamycin. Patient instructed to follow up with dentist verbalized understanding and agreed to plan of care at this time. Chronic pain of left knee 08/21/2018 Other chronic pain 08/21/2018 Sinusitis 04/19/2015 03/28/2021 Overview (03/07/2017): Sinusitis Immunizations Immunization Administration Dates Next Due Influenza, Unspecified 02/26/2024(Deferr ed: Patient Refused),12/19/2022(Deferred: Patient Refused),2020(Deferred: Patient Refused),2020(Deferred: Patient Refused) Tdap 01/17/2017 Surgical History Surgery Date Site/Laterality Comments OTHER SURGICAL HISTORY 2008 : 4 hr labor Medical History Medical History Date Comments Hx Other Medical 2009 ; Comm ents: Elevated DSR on quad screen. Depression. Sudden rapid PTL.; Outcome: 33W3D week 4lb(s) Female Hx Other Medical Migraine headac hes Hx Other Medical Depression and anxiety HTN (hypertension) Family History Medical History Relation Name Comments Asthma Brother 1 No Known Problems Daughter Hypertension Father Hypertension; Stroke Father Liver cancer Maternal Grandfather Cancer, liver; Hypertension Maternal Grandmother Hyperte nsion; Anxiety disorder Mother Hypertension Mother Hypertension; Stroke Other 1 Stroke; CLW - Maternal side; unsure who. Hypertension Other 2 Family history of Hypertension; Lung cancer Paternal Grandmother Cancer, lung; Relation Name Status Comments Brother 1 Alive Brother 2 Alive Brother 3 Alive Daughter Alive Father Alive Maternal Grandfather Maternal Grandmother Mother Alive Other 1 Other 2 Paternal Grandmother Social History Tobacco Use Types Packs/Day Years Used Date Smoking Tobacco: Every Day Vaping Smokeless Tobacco: Never Tobacco Cessation:Ready to Q uit: Not Asked; Counseling Given: Not Answered Comments:e-cig Alcohol Use Standard Drinks/Week Comments Yes 0 (1 standard drink = 0.6 oz pur e alcohol) AUDIT-C Answer Date Recorded Frequency of Alcohol Consumption Not on file 05/28/2023 Q2: How many drinks containi ng alcohol do you have on a typical day when you are drinking? Patient declined 05/28/2023 Q3: How often do you have si x or more drinks on one occasion? Patient declined 05/28/2023 PHQ-2 Answer Date Recorded PHQ-2 Total Score (If total score is 3 or more points, staff should administer the PHQ-9) 0 02/26/2024 Comments No Sex and Gender Information Value Date Recorded Sex Assigned at Not on file Legal Sex Female 12:29 PM MUSHROOM GROWER Gender Identity Female 04/20/2023 9:37 AM CDT Sexual Orientation Lesbian 04/20/2023 9: 37 AM CDT Obstetrics History Last Filed Vital Signs Vital Sign Reading Time Taken Comments Blood Pressure 90/60 02/26/2024 2:29 PM CDT Pulse 69 02/26/2024 2:29 PM CDT Temperature 36.8 C (98.2 F) 10/11/2021 9:02 PM MUSHROOM GROWER Respiratory Rate 16 02/26/2024 2:29 PM CDT Oxygen Saturation 98% 02/26/2024 2:29 PM CDT Inhaled Oxygen Concentration - - Weight 79 kg (174 lb 1.6 oz) 02/26/2024 2:29 PM CDT Height 157.5 cm (5' 2.01) 02/26/2024 2:29 PM CD T Body Mass Index 31.84 02/26/2024 2:29 PM CDT Plan of Treatment Health Maintenance Due Date Last Done Comments Cervical Cancer Screening 1985 Varicella Vaccines (1 of 2 - 13+ 2-dose series) 1998 Hepatitis B Screening 2003 Pneumococcal vaccine <65 (1 of 2 - PCV) 2004 HPV Vaccines (1 - 3-dose SCD M series) 2012 Regular Well Visit/Exam 18-64 10/30/2024 10/30/2023 Depression Screening 02/25/2025 02/26/2024, 05/28/2023, 02/27/2023, Additional history exists Influenza Vaccine (#1) 2025 DTaP/Tdap/Td Vaccine (2 - Td or Tdap) 01/17/2027 01/17/2017 Hepatitis C Screening Completed 03/28/2021 Procedures Procedure Name Priority Date/Time Associated Diagnosis Comments HEPATITIS C ANTIBODY Routine 03/28/2021 9:10 AM CDT Need for hepatitis C screening test from Last 3 Months or Most Recently Relevant to Health Maintenance Results * Hepatitis C antibody (03/28/2021 9:10 AM CDT) Hep C Ab Nonreactive Nonreactive MANE HOWARD ([place]) Comment: Interpretive Data Nonreactive: Antibodies to HCV not detected. Does NOT exclude the possibility of recent exposure to HCV. Equivocal: Equivocal for HCV antibodies. Supplemental molecular testing will be automatically performed to determine infection status in accordance with current CDC screening recommendations. Reactive: Positive for HCV antibodies. This may represent current or past HCV infection. Supplemental molecular testing will be automatically performed to determine current infection status in accordance with current CDC screening recommendations. Interpretive data was last revised on 2020. Testing performed by: [facility], [address] [place] [address], [place]., [address] Blood specimen (specimen) 03/28/2021 9:10 AM CDT 03/28/2021 1:51 PM CDT Jose Luis Todd MD LAB MICROBIOLOGY - GENE RAL ORDERABLES Final Result [facility] ([place]) [facility] Department [place] [address] from Last 3 Months or Most Recently Relevant to Health Maintenance Insurance Care Teams Microbiological Analyst Relationship Specialty Start Date End Date Andry Waters MD PCP - General Family Medicine 02/27/23
[2025-08-31 12:24] VITALS: BP 133/86; PULSE 84; RESP 20; TEMP 36.4; O2SAT 100
--- NOTE | 2025-08-31 12:38 | ED_ITS ---
HPI - Extremity Injury (Lower) General Chief Complaint: Extremity Injury, Lower Stated Complaint: Right knee pain Time Seen by Provider: 08/31/25 12:54 Source: patient, RN notes reviewed and old records reviewed Mode of arrival: ambulatory Limitations: no limitations History of Present Illness HPI Narrative: 39-year-old female presents to the [facility] with right knee pain. Reports a twisting injury 4 days ago. Currently the brace. Related Data Home Medications ?Medication ?Instructions ?Recorded ?Confirmed ?Last Taken ?Type lisinopril 20 mg tablet mg 08/31/25 Unknown History Allergies Allergy/AdvReac Type Severity Reaction Status Date / Time nut - unspecified Allergy Unknown Unknown Verified 08/31/25 12:30 Penicillins Allergy Unknown Hives Verified 08/31/25 12:30 strawberry Allergy Unknown Unknown Verified 08/31/25 12:30 tramadol Allergy Hives Verified 08/31/25 12:30 Review of Systems 2 Review of Systems: All systems reviewed & are unremarkable except as noted in HPI and below Constitutional: Constitutional: Reports no additional constitutional complaints ENT: Reports system reviewed and no additional complaints, except as documented Cardiovascular: Cardiovascular: Reports no additional cardiovascular complaints, Denies chest pain and Denies dyspnea Respiratory: Respiratory: Reports no additional respiratory complaints, Denies chest congestion, Denies cough and Denies dyspnea Musculoskeletal: Musculoskeletal: Reports as per HPI Integumentary/Breasts: Skin/Breast: Reports system reviewed and no additional complaints, except as docu PMFSH Past Medical History Medical History Ankle fracture, right Hypertension Anxiety Hx of migraines Nut allergy Surgical History Surgical History H/O arthroscopic knee surgery Family History Family History Father Hypertension Mother Hypertension Sibling Hypertension Asthma Grandparent Carcinoma of colon Family history of lung cancer Other Family history of arthritis Family history of malignant neoplasm Social History Social History Smoking status: Current every day smoker Tobacco type: e-cigarettes/vaping Smoking end date: 12/02/13 Additional smoking assessment comments: now vapes Alcohol intake: never Substance use type: does not use Living arrangements: with family Gender identity (if verbalized by the patient): Female Comments At the time of my signature, I reviewed and agree with the nursing past medical, surgical, social, and family history. There is no relevant family history pertinent to the patient complaint. Exam 2 Const: General: cooperative, healthy appearing, comfortable, no acute distress, well developed, alert and well nourished Nutritional Appearance: w ell nourished and obese Orientation/consciousness: patient oriented x3 L imitations: no limitations HENMT: Head: normal to inspection Eyes: General: appearance normal, both eyes and all related structures A lignment and Position: alignment normal Neck: Neck: normal visual inspection, full ROM, no lymphadenopathy and no meningeal signs Chest: Chest palpation & inspection: normal inspection of the chest Resp: Effort & Inspection: normal respiratory effort and able to speak in complete sentences Cardio: Rate: regular rate Skin: General skin exam: normal color and no rashes or lesions noted Neuro: General: patient oriented x3, gait normal, moves all extremities and no meningeal signs Cognition (Neuro): normal cognition Speech: normal speech Gait exam (Neuro): Normal gait present Extrem: General: normal to inspection, full ROM, capillary refill normal and normal gait Right lower extremity: knee Details: tenderness, swelling (Mild) and normal ROM Knee images: 1. Old bruise 2. Tender mild swelling. Full range of motion Psych: Appearance: grossly normal and well kempt Mental Status: mental status grossly normal Speech and movement: Normal speech and movement present and Clear speech present Affect: normal affect Attitude: cooperative Course Course Level of Care: Express Care Visit Vital Signs Vital signs: Vital Signs Temperature 97.5 F L 08/31/25 12:24 Pulse Rate 84 08/31/25 12:24 Respiratory Rate 08/31/25 12:24 Blood Pressure 133/86 08/31/25 12:24 Pulse Oximetry 100 08/31/25 12:24 Oxygen Delivery Room Air 08/31/25 12:24 Temperature 97.5 F L 08/31/25 12:24 Pulse Rate 84 08/31/25 12:24 Respiratory Rate 08/31/25 12:24 Blood Pressure 133/86 08/31/25 12:24 Pulse Oximetry 100 08/31/25 12:24 Oxygen Delivery Room Air 08/31/25 12:24 Reviewed MDM - Extremity Injury (Lower) MDM Narrative Medical decision making narrative: Patient sitting in exam room. Patient is nontoxic, vitals stable. Patient presents with knee pain. Twisting injury. X-ray negative for acute findings Patient appropriate for outpatient treatment with close follow-up Discharge instructions reviewed with patient, as well as provided in writing per nursing staff. The instructions also include specific and strict return/GO TO THE ER as well as f/u information. All questions have been answered, and the patient deny any further questions with discharge and discharge plan. Some parts of this dictation were generated by voice recognition software and may contain typographical and/or grammatical inaccuracies. Differential Diagnosis Differential diagnosis: Likely other (Fracture, knee sprain, strain, MCL, ACL) Imaging Data Radiologist's impression: Examination: XR knee RT 3V Clinical History: pain twisting injury. Comparison: None Technique: 3 views right knee Findings/impression: 1. No fracture, dislocation, or effusion. 2. Moderate patellofemoral compartment joint space narrowing with mild marginal osteophytes. 3. Mild lateral compartment marginal osteophytes. Critical Care Time Critical Care Time Critical Care Time: No Discharge Plan Discharge Clinical Impression: Acute pain of right knee Patient Disposition: Home Condition: Stable Instructions: Swollen Knee Joint (ED), Knee Pain (ED) Additional Instructions: Your Xray did not show a fracture. Ice should be applied to help reduce swelling. It can be used for 20 to 30 minutes, every 2-3 hours while awake. Do not apply ice directly to your skin. A knee brace or Tc wrap will help support your knee. You can alternate ibuprofen 600mg and Tylenol 650mg every 4 hours as needed for pain Please schedule a follow-up visit with your personal physician for further evaluation and treatment within 2 weeks especially if symptoms persist. For new or worsening symptoms go directly to the emergency room Patient Language: Welsh Prescriptions: No Action lisinopril 20 mg tablet Follow-up/Referrals: Shawna,Stephanie Tristan APN [Primary Care Provider, Unknown] - 2 Weeks Stand Alone Forms: Work/School Release IP Time of Disposition: 13:05
== END 2025-08-31 13:08 | disposition home or self-care (01) ==
PROVIDERS: Emergency Provider Nurse Practitioner; PCP Nurse Practitioner Family
DX: M25.561 Pain in right knee (principal); F17.290 Nicotine dependence, other tobacco product, uncomplicated; I10 Essential (primary) hypertension
CPT/HCPCS: 73562; 99213; G0463